=== PATIENT | male | born 1965 | race Caucasian/White ===

== ENCOUNTER 2019-09-28 12:21 | Day surgery (SDC) | payer BC ==
[~2019-09-28 12:21] MED LIST: Lactated Ringers 1,000 ML IV SCH; Lidocaine 1%/Sod Bicarbonate in NS 8.4% 1 ML Syringe IDERM PRN; Sodium Chloride 0.9% 10 ML Syringe FLUSH PRN
[2019-09-28] MEDS ORDERED: Propofol 200 MG/20 ML SDV ONE ×2 (12:26→13:26)
[2019-09-28] MEDS ORDERED: Midazolam 1 MG/ML 2 ML SDV ONE (12:27)
[2019-09-28] MEDS ORDERED: fentaNYL 100 MCG/2 ML SDV ONE (12:27)
[2019-09-28] MEDS ORDERED: Lidocaine 1% 4 ML ONE (12:30)
[2019-09-28] MEDS ORDERED: Bupivacaine 0.25% 10 ML SDV ONE (12:37)
--- NOTE | 2019-09-28 12:39 | PCM.PREANE ---
Preanesthetic Assessment - Procedure Proposed Procedure: Left Vth toe ORIF - Review of Systems General: No Symptoms Pulmonary: No Symptoms Cardiovascular: No Symptoms Gastrointestinal: No Symptoms Neurological: No Symptoms Other: Reports: None - Physical Assessment NPO Status Date: 09/27/19 NPO Status Time: 20:00 Vital Signs: 148/91, HR 73, SpO2 97% RR 16, T98F Height: 1.88 m Weight: 123.377 kg ASA Class: 2 Mental Status: Alert & Oriented x3 Dentition: Reports: Normal Dentition, [place](s) (has invisible retainer) Thyro-Mental Finger Breadths: 3 Mouth Opening Finger Breadths: 3 ROM/Head Extension: Full Lungs: Clear to Auscultation, Normal Respiratory Effort Cardiovascular: Regular Rate, Regular Rhythm - Lab Values: Laboratory Last Values SARS Virus RNA (PCR) Negative (NEGATIVE) 09/25/19 13:30 - Allergies Allergies/Adverse Reactions: Allergies Allergy/AdvReac Type Severity Reaction Status Date / Time peanut Allergy Anaphylactic Verified 11/17/15 06:59 Shock - Acknowledgements Anesthesia Type Planned: MAC (with digital block by the surgeon) Pt an Appropriate Candidate for the Planned Anesthesia: Yes Alternatives and Risks of Anesthesia Discussed w Pt/Guardian: Yes Pt/Guardian Understands and Agrees with Anesthesia Plan: Yes PreAnesthesia Questionnaire HEENT History: Reports: Impaired Vision Cardiovascular History: Reports: None Respiratory History: Reports: None Gastrointestinal History: Reports: None Genitourinary History: Reports: None SENIOR MARKETING COORDINATOR History: Reports: None Neurological History: Reports: None Psychiatric History: Reports: None Endocrine/Metabolic History: Reports: Vitamin D Deficiency Immunologic History: Reports: None Oncologic (Cancer) History: Reports: None - Infectious Disease History Infectious Disease History: Reports: None - Past Surgical History Head Surgeries/Procedures: Reports: None HEENT Surgical History: Reports: Oral Surgery Cardiovascular Surgical History: Reports: None Respiratory Surgical History: Reports: None GI Surgical History: Reports: Hernia, Inguinal Male Surgical History: Reports: Vasectomy Endocrine Surgical History: Reports: None Neurological Surgical History: Reports: None Musculoskeletal Surgical History: Reports: Carpal Tunnel Oncologic Surgical History: Reports: None Dermatological Surgical History: Reports: Other (See Below) - SUBSTANCE USE Smoking Status *Q: Never Smoker Recreational Drug Use History: No - HOME MEDS Home Medications: Home Meds Famotidine [Pepcid] 1 tab PO DAILY 11/17/15 [History] Famotidine [Pepcid] 20 mg PO DAILY PRN 09/27/19 [History] diphenhydrAMINE HCL [Benadryl] 25 mg PO BEDTIME PRN 09/27/19 [History] Acetaminophen/HYDROcodone [Roy 325-5 MG] 1 - 2 tab PO Q6H PRN #15 tablet 09/27 [Rx] Aspirin 325 mg PO BID #84 tab 09/28/19 [Rx] - CURRENT (IN HOUSE) MEDS Current Meds: Current Medications Lactated Ringer's (Ringers, Lactated) 1,000 mls @ 125 mls/hr IV ASDIRECTED JENNIFER Stop: 09/28/19 23:00 Lidocaine/Sodium Bicarbonate (Buffered Lidocaine 1% In Ns 8.4%) 0.25 ml IDERM ONETIME PRN PRN Reason: Prior to IV Start Stop: 09/28/19 18:00 Sodium Chloride (Saline Flush) 10 ml FLUSH ASDIRECTED PRN PRN Reason: Keep Vein Open Stop: 09/28/19 18:00 Discontinued Medications Fentanyl (Sublimaze) Confirm Administered Dose 100 mcg .ROUTE .STK-MED ONE Stop: 09/28/19 12:28 Lidocaine HCl (Xylocaine-Mpf 1%) Confirm Administered Dose 4 mls @ as directed .ROUTE .STK-MED ONE Stop: 09/28/19 12:31 Midazolam HCl (Versed 1 Mg/Ml) Confirm Administered Dose 2 mg .ROUTE .STK-MED ONE Stop: 09/28/19 12:28 Propofol (Diprivan 20 Ml) Confirm Administered Dose 400 mg .ROUTE .STK-MED ONE Stop: 09/28/19 12:27
[2019-09-28] MEDS ORDERED: ceFAZolin 1 GM Vial ONE (12:52)
[2019-09-28] MEDS ORDERED: Ondansetron 4 MG/2 ML SDV ONE (13:18)
--- NOTE | 2019-09-28 14:08 | PCM48HPAN ---
Post Anesthesia Note - EVALUATION WITHIN 48HRS OF ANESTHETIC Vital Signs in Normal Range: Yes Patient Participated in Evaluation: Yes Respiratory Function Stable: Yes Airway Patent: Yes Cardiovascular Function Stable: Yes Hydration Status Stable: Yes Pain Control Satisfactory: Yes Nausea and Vomiting Control Satisfactory: Yes Mental Status Recovered: Yes Vital Signs: Last Vital Signs Temp 97.8 F 09/28/19 13:57 Pulse 68 09/28/19 13:57 Resp 16 09/28/19 13:57 BP 115/75 09/28/19 13:57 Pulse Ox 91 L 09/28/19 13:57
--- NOTE | 2019-09-28 14:14 | CR ---
Left 5th toe: 9 fluoroscopic spot views were obtained of the left 5th toe. Study shows placement of a longitudinal pin through the 5th toe. Fluoroscopy time given as 48.2 seconds. Impression: 1. Procedural study as noted above. Diagnostic code #2 This report was dictated in MDT
[2019-09-28 15:13] VITALS: BP 117/71; PULSE 55
--- NOTE | 2019-10-01 07:23 | PCM.OPNOTE ---
- General Post-Op/Procedure Note Date of Surgery/Procedure: 09/28/19 Operative Procedure(s): closed reduction with percutaneous pinning of left small toe proximal phalanx fracture Pre Op Diagnosis: displaced left small toe proximal phalanx fracture Post-Op Diagnosis: Same Anesthesia Technique: Local, MAC Primary Surgeon: Fred Brooke Anesthesia Provider: [place] Brand Ambassador Promotional Model: Kandi Huerta EBL in mLs: 5 Complications: None Condition: Good
--- NOTE | 2019-10-01 07:52 | OR ---
DATE OF OPERATION: 09/28/2019 SURGEON: Fred Brooke MD OPERATION PERFORMED: Closed reduction with percutaneous pinning of left small toe proximal phalanx fracture. PREOPERATIVE DIAGNOSIS: Displaced left small toe proximal phalanx fracture. POSTOPERATIVE DIAGNOSIS: Displaced left small toe proximal phalanx fracture. ANESTHESIA: Local MAC. ANESTHESIA PROVIDER: Magaly Ambrose. DIRECTOR GLOBAL DEVELOPMENT: Kandi Huerta PA-C ESTIMATED BLOOD LOSS: Less than 5 mL. COMPLICATIONS: None. CONDITION: Stable. DESCRIPTION OF PROCEDURE: The patient was identified in the preoperative holding area. Proper site was marked and identified by the surgeon. The patient was taken back to the operating theater where after adequate anesthesia, the patient's left lower extremity was sterilely prepped and draped in the usual sterile fashion. OR time-out was performed. The patient received 2 g of IV Ancef at this time. A closed reduction maneuver was done. It was found that it could be closed reduced and held, so at this time, I decided to forego the open reduction and do a percutaneous pinning closed. A 0.042 K-wire was then placed through the tip of the toe all the way into the metacarpal head. It was found to have near anatomic reduction on both AP, oblique and lateral views. Another 0.031 K-wire was then placed for rotational stability in a similar fashion. It was found to have anatomic reduction with stability at this point. A sterile soft dressing was applied. The patient was placed in a postop shoe and sent to the PACU in stable condition. MMODAL /[id number]
== END 2019-09-28 14:50 | disposition home or self-care (01) ==
LOC: JD.SDS 12:21 → MERGE 12:45 → EDSEX 12:45 → JD.SDS 14:50
PROVIDERS: ATTEND Orthopaedic Surgery
DX: S92.512A Displaced fracture of proximal phalanx of left lesser toe(s), initial encounter for closed fracture (principal); Z11.59 Encounter for screening for other viral diseases; X58.XXXA Exposure to other specified factors, initial encounter
CPT/HCPCS: 01480; 76000; 76000-26; C1713; C1769; J0690; J2001; J2250; J2405; J2704; J3010; J3490; J7120; U0002